=== PATIENT | male | born 1985 | race Caucasian/White ===

== ENCOUNTER 2019-03-21 18:37 | Emergency (ER) | payer OTHER ==
[2019-03-21] MEDS ORDERED: Zofran 4 MG/2 ML VIAL IV ONE (18:46)
[2019-03-21] MEDS ORDERED: Sodium Chloride 0.9% 1000 ML 1,000 ML ONE (18:46)
[2019-03-21] MEDS ORDERED: NARCAN 2 MG/2 ML IV ONE (18:46)
[2019-03-21] MEDS ORDERED: Sodium Chloride 0.9% 1000 ML 1,000 ML IV STA (18:46)
--- NOTE | 2019-03-21 18:48 | ERPHSYRPT ---
- History of Present Illness Source: patient, family, EMS, old records Exam Limitations: no limitations <JOSTIN CARRASCO - Last Filed: 03/21/19 18:41> <IRISH GALVIN - Last Filed: 03/21/19 20:30> - History of Present Illness Physician History: PT IS A 33 Y/O MALE VIA EMS C/O OVERDOSE ON HEROIN. 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 DOWN TIME MAY HAVE BEEN APPROXIMATELY 20 MIN. PT WAS RESUSCITATED WITH 2 MG INTRANASAL NARCAN AND 1 MG IV NARCAN. DENIES FENTANYL OR OTHER COINGESTANTS. NO SI/AH/HI. NO CP/SOB/N/V/FEVER/CHILLS/DYSURIA/HEMATURIA. DENIES HEAD INJURY STATES HE WAS SITTING. PMHX IVDU HEROIN PSHX DENIES MEDS REVIEWED ALL NKDA +tOB + ETOH +IVDU HEROIN TODAY EMPLOYED [employer] FHX NON CONTRIB (DANILOJOSTIN) patient says he does do heroin all the time. His is having paraplegia. He is to take care of kids. he works as a hazardous waste technician.he has been through drug rehabilitation multiple times before. He says that he must quit heroine. (IRISH GALVIN) Allergies/Adverse Reactions: No Known Drug Allergies Allergy (Unverified 03/21/19 18:52) - Review of Systems Constitutional: No Symptoms, No Fever, No Chills, No Fatigue, No Lethargy, No Malaise, No Night Sweats, No Weakness, No Weight Loss Eyes: No Symptoms, No Discharge, No Eye Pain, No Eye Redness, No Itchy, No Photophobia, No Tearing, No Vision Changes, No Double Vision, No Foreign Body Sensation Ears, Nose, & Throat: No Symptoms, No Ear Pain, No Ear Discharge, No Hearing Changes, No Tinnitus, No Nose Congestion, No Nose Discharge, No Epistaxis, No Mouth Pain, No Mouth Swelling, No Throat Pain, No Throat Swelling, No Hoarse, No Painful Swallowing, No Stridor Respiratory: No Symptoms, No Cough, No Cyanosis, No Dyspnea, No Dyspnea on Exertion (BABIN), No Stridor, No Wheezing Cardiac: No Symptoms, No Chest Pain, No Edema, No Palpitations, No Syncope, No Orthopnea Abdominal/Gastrointestinal: No Symptoms, No Abdominal Pain, No Nausea, No Vomiting, No Diarrhea, No Constipation, No Hematemesis, No Hematochezia, No Melena, No Dysphagia, No Appetite Changes Genitourinary Symptoms: No Symptoms, No Dysuria, No Frequency, No Hematuria, No Hesitancy, No Incontinence, No Urgency, No Urinary Retention, No Flank Pain Musculoskeletal: No Symptoms, No Arthralgias, No Back Pain, No Neck Pain, No Deformity, No Fall, No Injury, No Joint Redness, No Joint Pain, No Joint Swelling, No Myalgias Skin: No Symptoms, No Cellulitis, No Decubiti, No Induration, No Pruritis, No Rash, No Skin Lesions, No Dryness Neurological: No Symptoms, No Dizziness, No Focal Weakness, No Gait Changes, No Headache, No Irritability, No Lethargy, No Paralysis, No Parasthesia, No Seizure , No Sensory Changes, No Speech Changes, No Tics, No Tremors, No Vertigo Psychological: No Symptoms, Drug Abuse, No Alcohol Abuse, No Anxiety, No Depression, No Suicidal Ideations, No Homicidal Ideations, No Emotional Lability , No Hallucinations, No Memory Loss, No Mood Changes Endocrine: No Symptoms, No Polyuria, No Polydipsia, No Hair Changes, No Cold Intolerance, No Excessive Sweating, No Goiter Hematologic/Lymphatic: No Symptoms, No Anemia, No Blood Clots, No Easy Bleeding , No Gum Bleeding, No Easy Bruising, No Adenopathy Immunological/Allergic: No Symptoms All Other Systems: Reviewed and Negative <JOSTIN CARRASCO - Last Filed: 03/21/19 18:41> - Physical Exam General Appearance: no apparent distress, alert, other (A LITTLE BIT GROGGY) Eye Exam: PERRL/EOMI, eyes nml inspection, other (fundi normal julieth, ANISOCORA S/ P RIGHT EYE SURGERY, LEFT IS PINPOINT BUT REACTIVE), No scleral icterus, No pale conjunctivae, No photophobia, No EOM palsy/anisocoria Ears, Nose, Throat Exam: normal ENT inspection, TMs normal, pharynx normal, TM abnormal (L), other (uvula midline, floor of mouth soft), No moist mucous membranes, No dry mucous membranes, No TM abnormal (R), No pharyngeal erythema, No tonsillar exudate Neck Exam: normal inspection, non-tender, supple, full range of motion, No meningismus, No mass, No Brudzinski, No Kernig's, No carotid bruit, No JVD, No limited range of motion, No lymphadenopathy, No midline tenderness, No thyromegaly Respiratory Exam: normal breath sounds, lungs clear, airway intact, No chest tenderness, No respiratory distress, No diminished breath sounds, No accessory muscle use, No prolonged expirations, No crackles/rales, No rhonchi, No wheezing , No stridor, No pleural rub Cardiovascular Exam: regular rate/rhythm, normal heart sounds, normal peripheral pulses, capillary refill <2 sec, No murmur, No friction rub, No gallop, No tachycardia, No bradycardia, No irregular, No capillary refill 2-3 sec, No capillary refill >3 sec, No edema, No pulse deficit Gastrointestinal/Abdomen Exam: soft, normal bowel sounds, No tenderness, No distention, No mass, No guarding, No ecchymosis, No pulsatile mass, No rebound, No hernia, No hepatomegaly, No organomegaly, No splenomegaly, No bruit Male Genitalia Exam: normal genitalia Rectal Exam: deferred Back Exam: normal inspection, normal range of motion, other (neg slr julieth, no sacral anesthesia, dtr 2/4 julieth patella), No CVA tenderness, No vertebral tenderness, No rash, No decreased range of motion, No muscle spasm, No point tenderness Extremity Exam: normal inspection, normal range of motion, pelvis stable, No amputations, No contusions, No calf tenderness, No deformities, No lacerations, No parasthesia, No paralysis, No inflammation, No joint swelling, No limited range of motion, No pedal edema, No swelling, No tenderness Neurologic Exam: alert, oriented x 3, cooperative, diamond sizer and grader II-XII nml as tested, normal mood/affect, nml cerebellar function, nml station & gait, sensation nml, No motor deficits, No sensory deficit, No disoriented, No confusion, No agitation, No uncooperative, No intoxicated appearance, No depressed mood/affect , No motor weakness, No facial droop, No slurred speech, No aphasia, No dysarthria, No abnormal gait, No abnormal cerebellar tests, No abnormal diamond sizer and grader II- XII, No EOM palsy Skin Exam: normal color, warm, dry, other (JULIETH UE TRACK BARRON), No rash, No petechiae, No jaundice, No abrasion, No cyanosis, No diaphoresis, No decubitus, No embolic lesions, No ecchymosis, No jaundice, No laceration, No mottled, No pale Lymphatic Exam: No adenopathy SpO2 Interpretation: normal O2 Delivery: Room Air <JOSTIN CARRASCO - Last Filed: 03/21/19 18:41> - Nursing Vital Signs Nursing Vital Signs: Initial Vital Signs Temperature 98 F 03/21/19 18:40 Pulse Rate 92 H 03/21/19 18:40 Respiratory Rate 20 03/21/19 18:40 Blood Pressure 124/74 03/21/19 18:40 O2 Sat by Pulse Oximetry 95 03/21/19 18:40 Pain Scale Pain Intensity 0 - Course Nursing assessment & vital signs reviewed: Yes <JOSTIN CARRASCO - Last Filed: 03/21/19 18:41> - Course Nursing assessment & vital signs reviewed: Yes <IRISH GALVIN - Last Filed: 03/21/19 20:30> Ordered Tests: Active Orders 24 hr Category Date Time Status EKG-ER Only STAT Care 03/21/19 18:46 Active IV Insertion STAT Care 03/21/19 18:46 Active Pulse Oximetry (ED) STAT Care 03/21/19 18:46 Active ACETAMINOPHEN Stat Lab 03/21/19 19:00 Completed CBC W DIFF Stat Lab 03/21/19 19:00 Completed CK (IN-HOUSE) [CK-Creatinine Phosphokinase] Stat Lab 03/21/19 19:00 Completed CMP Stat Lab 03/21/19 19:00 Completed ETHYL ALCOHOL Stat Lab 03/21/19 19:00 Completed Lactic Acid Stat Lab 03/21/19 19:00 Completed PROTIME WITH INR Stat Lab 03/21/19 19:00 Completed SALICYLATE Stat Lab 03/21/19 19:00 Completed UA W/RFX UR CULTURE Stat Lab 03/21/19 18:46 Uncollected Urine Triage Profile Stat Lab 03/21/19 18:46 Uncollected Medication Summary Discontinued Medications Generic Name Dose Route Start Last Admin Trade Name Freq PRN Reason Stop Dose Admin Sodium Chloride Confirm 03/21/19 18:46 Sodium Chloride 0.9% 1000 Ml Administered 03/21/19 18:47 Dose 1,000 mls @ ud .ROUTE .STK-MED ONE Sodium Chloride 1,000 mls @ 999 mls/hr 03/21/19 18:46 03/21/19 18:53 Sodium Chloride 0.9% 1000 Ml IV 03/21/19 19:46 999 mls/hr .Q1H1M STA Administration Naloxone HCl 1 mg 03/21/19 18:46 Narcan 2 Mg/2 Ml IV 03/21/19 18:47 STAT ONE Ondansetron HCl 4 mg 03/21/19 18:46 03/21/19 19:44 Zofran 4 Mg/2 Ml Vial IV 03/21/19 18:47 4 mg STAT ONE Administration Ondansetron HCl Confirm 03/21/19 19:43 Zofran 4 Mg/2 Ml Vial Administered 03/21/19 19:44 Dose 4 mg .ROUTE .STK-MED ONE Lab/Rad Data: Laboratory Result Diagrams 03/21/19 19:00 03/21/19 19:00 Laboratory Results 03/21/19 03/21/19 03/21/19 Range/Units 19:00 19:00 19:00 WBC (4.0-10.5) K/mm3 RBC (4.1-5.6) M/mm3 Hgb (12.5-18.0) gm/dl Hct (42-50) % MCV (78-100) fl MCH (26-32) pg MCHC (32-36) g/dl RDW (11.5-14.0) % Plt Count (150-450) K/mm3 MPV (6-9.5) fl Gran % (36.0-66.0) % Eos # (Auto) (0-0.5) Absolute Lymphs (auto) (1.0-4.6) Absolute Monos (auto) (0.0-1.3) Lymphocytes % (24.0-44.0) % Monocytes % (0.0-12.0) % Eosinophils % (0.00-5.0) % Basophils % (0.0-0.4) % Absolute Granulocytes (1.4-6.9) Basophils # (0-0.4) PT 12.9 H (8.83-12.87) SECONDS INR 1.14 (0.8-3.0) Sodium 141 (137-145) mmol/L Potassium 4.3 (3.5-5.1) mmol/L Chloride 108 H (98-107) mmol/L Carbon Dioxide 24 (22-30) mmol/L Anion Gap 13.5 (5-15) MEQ/L BUN 15 (9-20) mg/dL Creatinine 0.81 (0.66-1.25) mg/dL Estimated GFR > 60.0 ML/MIN Glucose 110 H (74-106) mg/dL Lactic Acid (0.4-2.0) Calcium 8.6 (8.4-10.2) mg/dL Total Bilirubin 0.50 (0.2-1.3) mg/dL AST 22 (17-59) U/L ALT 25 (0-50) U/L Alkaline Phosphatase 57 (38-126) U/L Creatine Kinase 116 (55-170) U/L Serum Total Protein 6.6 (6.3-8.2) g/dL Albumin 3.6 (3.5-5.0) g/dL Salicylates < 1.0 L (2-20) mg/dL Acetaminophen < 10 L (10-30) ug/ml Ethyl Alcohol < 10 (0-10) mg/dL 03/21/19 03/21/19 Range/Units 19:00 19:00 WBC 8.4 (4.0-10.5) K/mm3 RBC 4.53 (4.1-5.6) M/mm3 Hgb 12.8 (12.5-18.0) gm/dl Hct 40.4 L (42-50) % MCV 89.2 (78-100) fl MCH 28.3 (26-32) pg MCHC 31.7 L (32-36) g/dl RDW 13.9 (11.5-14.0) % Plt Count 294 (150-450) K/mm3 MPV 8.2 (6-9.5) fl Gran % 73.0 H (36.0-66.0) % Eos # (Auto) 0.33 (0-0.5) Absolute Lymphs (auto) 1.38 (1.0-4.6) Absolute Monos (auto) 0.53 (0.0-1.3) Lymphocytes % 16.4 L (24.0-44.0) % Monocytes % 6.3 (0.0-12.0) % Eosinophils % 3.9 (0.00-5.0) % Basophils % 0.4 (0.0-0.4) % Absolute Granulocytes 6.12 (1.4-6.9) Basophils # 0.03 (0-0.4) PT (8.83-12.87) SECONDS INR (0.8-3.0) Sodium (137-145) mmol/L Potassium (3.5-5.1) mmol/L Chloride (98-107) mmol/L Carbon Dioxide (22-30) mmol/L Anion Gap (5-15) MEQ/L BUN (9-20) mg/dL Creatinine (0.66-1.25) mg/dL Estimated GFR ML/MIN Glucose (74-106) mg/dL Lactic Acid 1.8 (0.4-2.0) Calcium (8.4-10.2) mg/dL Total Bilirubin (0.2-1.3) mg/dL AST (17-59) U/L ALT (0-50) U/L Alkaline Phosphatase (38-126) U/L Creatine Kinase (55-170) U/L Serum Total Protein (6.3-8.2) g/dL Albumin (3.5-5.0) g/dL Salicylates (2-20) mg/dL Acetaminophen (10-30) ug/ml Ethyl Alcohol (0-10) mg/dL - Progress Progress: improved Counseled pt/family regarding: drug and/or alcohol abuse, lab results, diagnosis , need for follow-up, rad results, smoking cessation <JOSTIN CARRASCO - Last Filed: 03/21/19 18:41> - Progress Progress: improved, re-examined (Care assumed. Pt A O x 3. no FND. ) <IRISH GALVIN - Last Filed: 03/21/19 20:30> - Progress Progress Note: 03/21/19 18:52 WILL SCREEN AND OBSERVE FOR A FEW HOURS WILL ENDORSE CARE TO KAMAR (JOSTIN CARRASCO) 03/21/19 20:28 prescribed so nasal spray. Discussed this with patient and his grandmother. They understood (IRISH GALVIN) - Departure Critical Care Time: No <JOSTIN CARRASCO - Last Filed: 03/21/19 18:41> - Departure Departure Disposition: Home Critical Care Time: No <IRISH GALVIN - Last Filed: 03/21/19 20:30> - Departure Clinical Impression: Heroin overdose Qualifiers: Encounter type: initial encounter Injury intent: undetermined intent Qualified Code(s): T40.1X4A - Poisoning by heroin, undetermined, initial encounter Condition: Good Referrals: LEONEL BRANTLEY [Primary Care Provider] - Instructions: Opioid Overdose (DC) Prescriptions: Naloxone HCl [Narcan] 4 mg NS DAILY PRN PRN #1 spray PRN Reason: OD
[2019-03-21 19:04] LABS: Absolute Neutrophil Ct (ANC) 6.12 (1.4-6.9); BASOPHIL % 0.4 % (0.0-0.4); Basophil (Absolute #) 0.03 (0-0.4); Eosinophil % 3.9 % (0.00-5.0); Eosinophil (Absolute #) 0.33 (0-0.5); Hematocrit 40.4 % (42-50); Hemoglobin 12.8 gm/dl (12.5-18.0); Lymphocyte (Absolute #) 1.38 (1.0-4.6); Lymphocytes % 16.4 % (24.0-44.0); Mean Cell Volume 89.2 fl (78-100); Mean Corpuscular Hemoglobin 28.3 pg (26-32); Mean Corpuscular Hgb Concent. 31.7 g/dl (32-36); Mean Platelet Volume 8.2 fl (6-9.5); Monocyte (Absolute #) 0.53 (0.0-1.3); Monocytes % 6.3 % (0.0-12.0); Platelet Count 294 K/mm3 (150-450); Red Blood Count 4.53 M/mm3 (4.1-5.6); Red Cell Distribution Width 13.9 % (11.5-14.0); White Blood Count 8.4 K/mm3 (4.0-10.5)
[2019-03-21 19:17] LABS: ALBUMIN 3.6 g/dL (3.5-5.0); ALKALINE PHOSPHATASE 57 U/L (38-126); ANION GAP 13.5 MEQ/L (5-15); BLOOD UREA NITROGEN 15 mg/dL (9-20); CHLORIDE 108 mmol/L (98-107); Calcium 8.6 mg/dL (8.4-10.2); Carbon Dioxide 24 mmol/L (22-30); Creatinine 1 0.81 mg/dL (0.66-1.25); Glucose 110 mg/dL (74-106); Potassium 4.3 mmol/L (3.5-5.1); SGOT/AST 22 U/L (17-59); SGPT/ALT 25 U/L (0-50); SODIUM 141 mmol/L (137-145); Total Protein 6.6 g/dL (6.3-8.2)
[2019-03-21 19:18] LABS: ACETAMINOPHEN < 10 ug/ml (10-30); ETHYL ALCOHOL < 10 mg/dL (0-10); SALICYLATE < 1.0 mg/dL (2-20)
[2019-03-21 19:26] LABS: INR 1.14 (0.8-3.0); PROTIME 12.9 SECONDS (8.83-12.87)
[2019-03-21] MEDS ORDERED: Zofran 4 MG/2 ML VIAL ONE (19:43)
[2019-03-21 21:38] VITALS: BP 126/73; PULSE 104; O2SAT 98
== END 2019-03-21 21:42 | disposition home or self-care (01) ==
LOC: ED 18:37
DX: T40.1X4A Poisoning by heroin, undetermined, initial encounter (principal)
CPT/HCPCS: 36000; 36415; 80053; 80307; 82550; 83605; 85025; 85610; 93005; 94760; 96360; 96374; 99284; 99291; 99292; G0481; J2405; G0480